=== PATIENT | female | born 1980 | race Caucasian/White ===

== ENCOUNTER 2022-04-10 14:32 | Emergency (ER) | payer BC, SELFPAY ==
[2022-04-10 15:13] VITALS: BP 159/121; PULSE 122; RESP 16; TEMP 37.1; O2SAT 97; BMI 40.5
--- NOTE | 2022-04-10 16:05 | ED_ITS ---
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 (Auto) 0.00 (0.00-0.50) K/uL Baso # (Auto) 0.00 (0.00-0.30) K/uL Abs Immat Gran (auto) 0.01 (0.00-0.30) K/uL Sodium (135-149) mmol/L Potassium (3.6-5.1) mmol/L Chloride (96-114) mmol/L Carbon Dioxide (20-32) mmol/L BUN (5-24) mg/dL Creatinine (0.5-1.5) mg/dL Estimated Creat Clear Estimated GFR ml/min Glucose (60-115) mg/dL Calcium (8.4-10.6) mg/dL TSH (0.270-4.20) uIU/mL HCG, Qual Negative (Negative) Urine Color (Yellow) Urine Appearance (Clear) Urine pH (5.0-8.5) Ur Specific [place] (1.000-1.030) Urine Protein (Negative) Urine Glucose (UA) (Negative) Urine Ketones (Negative) Urine Blood (Negative) Urine Nitrite (Negative) Urine Bilirubin (Negative) Urine Urobilinogen (0.2-1.0) Ur Leukocyte Esterase (Negative) Salicylates (1.0-10) mg/dL Urine Opiates Screen (Negative) Ur Oxycodone Screen (Negative) Urine Methadone Screen (Negative) Ur Propoxyphene Screen (Negative) Acetaminophen (10.0-30.0) ug/mL Ur Barbiturates Screen (Negative) U Tricyclic Antidepress (Negative) Ur Phencyclidine Scrn (Negative) Ur Amphetamines Screen (Negative) U Methamphetamines Scrn (Negative) U Benzodiazepines Scrn (Negative) Urine Cocaine Screen (Negative) U Marijuana (THC) Screen (Negative) Ur Drug Screen Comment Ethyl Alcohol (0.01-0.03) % SARS-CoV-2 (PCR) Negative SARS-CoV-2 (Negative) Influenza Type A (PCR) Negative PCR FLU A (Negative) Influenza Type B (PCR) Negative PCR FLU B (Negative) 04/10/22 04/10/22 04/10/22 Range/Units 16:20 16:20 18:00 WBC (4.50-11.00) K/uL RBC (4.00-5.20) m/uL Hgb (12.0-16.0) gm/dL Hct (33.0-51.0) % MCV (80-100) fL MCH (26-34) pg MCHC (32-36) gm/dL RDW Coeff of Caprice (11.5-15.5) % Plt Count (140-440) K/uL Neut % (Auto) (42.0-72.0) % Lymph % (Auto) (20-44) % [place] % (Auto) (0.0-11.0) % Eos % (Auto) (0.0-7.0) % Baso % (Auto) (0.0-3.0) % Neut # (Auto) (1.7-7.0) K/uL Lymph # (Auto) (0.90-2.90) K/uL [place] # (Auto) (0.00-0.90) K/UL Eos # (Auto) (0.00-0.50) K/uL Baso # (Auto) (0.00-0.30) K/uL Abs Immat Gran (auto) (0.00-0.30) K/uL Sodium 140 (135-149) mmol/L Potassium 3.9 (3.6-5.1) mmol/L Chloride 105 (96-114) mmol/L Carbon Dioxide 22 (20-32) mmol/L BUN 13 (5-24) mg/dL Creatinine 1.0 (0.5-1.5) mg/dL Estimated Creat Clear 62.64 Estimated GFR 72 ml/min Glucose 136 H (60-115) mg/dL Calcium 9.8 (8.4-10.6) mg/dL TSH 3.750 (0.270-4.20) uIU/mL HCG, Qual Cancelled (Negative) Urine Color (Yellow) Urine Appearance (Clear) Urine pH (5.0-8.5) Ur Specific [place] (1.000-1.030) Urine Protein (Negative) Urine Glucose (UA) (Negative) Urine Ketones (Negative) Urine Blood (Negative) Urine Nitrite (Negative) Urine Bilirubin (Negative) Urine Urobilinogen (0.2-1.0) Ur Leukocyte Esterase (Negative) Salicylates < 1.0 L (1.0-10) mg/dL Urine Opiates Screen (Negative) Ur Oxycodone Screen (Negative) Urine Methadone Screen (Negative) Ur Propoxyphene Screen (Negative) Acetaminophen < 10.0 L (10.0-30.0) ug/mL Ur Barbiturates Screen (Negative) U Tricyclic Antidepress (Negative) Ur Phencyclidine Scrn (Negative) Ur Amphetamines Screen (Negative) U Methamphetamines Scrn (Negative) U Benzodiazepines Scrn (Negative) Urine Cocaine Screen (Negative) U Marijuana (THC) Screen (Negative) Ur Drug Screen Comment Ethyl Alcohol < 0.01 L (0.01-0.03) % SARS-CoV-2 (PCR) (Negative) Influenza Type A (PCR) (Negative) Influenza Type B (PCR) (Negative) 04/10/22 04/10/22 Range/Units 18:00 18:00 WBC (4.50-11.00) K/uL RBC (4.00-5.20) m/uL Hgb (12.0-16.0) gm/dL Hct (33.0-51.0) % MCV (80-100) fL MCH (26-34) pg MCHC (32-36) gm/dL RDW Coeff of Caprice (11.5-15.5) % Plt Count (140-440) K/uL Neut % (Auto) (42.0-72.0) % Lymph % (Auto) (20-44) % [place] % (Auto) (0.0-11.0) % Eos % (Auto) (0.0-7.0) % Baso % (Auto) (0.0-3.0) % Neut # (Auto) (1.7-7.0) K/uL Lymph # (Auto) (0.90-2.90) K/uL [place] # (Auto) (0.00-0.90) K/UL Eos # (Auto) (0.00-0.50) K/uL Baso # (Auto) (0.00-0.30) K/uL Abs Immat Gran (auto) (0.00-0.30) K/uL Sodium (135-149) mmol/L Potassium (3.6-5.1) mmol/L Chloride (96-114) mmol/L Carbon Dioxide (20-32) mmol/L BUN (5-24) mg/dL Creatinine (0.5-1.5) mg/dL Estimated Creat Clear Estimated GFR ml/min Glucose (60-115) mg/dL Calcium (8.4-10.6) mg/dL TSH (0.270-4.20) uIU/mL HCG, Qual (Negative) Urine Color Yellow (Yellow) Urine Appearance Clear (Clear) Urine pH 6.0 (5.0-8.5) Ur Specific [place] 1.025 (1.000-1.030) Urine Protein Negative (Negative) Urine Glucose (UA) Negative (Negative) Urine Ketones Negative (Negative) Urine Blood Negative (Negative) Urine Nitrite Negative (Negative) Urine Bilirubin Negative (Negative) Urine Urobilinogen 0.2 (0.2-1.0) Ur Leukocyte Esterase Negative (Negative) Salicylates (1.0-10) mg/dL Urine Opiates Screen Negative (Negative) Ur Oxycodone Screen Negative (Negative) Urine Methadone Screen Negative (Negative) Ur Propoxyphene Screen Negative (Negative) Acetaminophen (10.0-30.0) ug/mL Ur Barbiturates Screen Negative (Negative) U Tricyclic Antidepress POSITIVE A* (Negative) Ur Phencyclidine Scrn Negative (Negative) Ur Amphetamines Screen Negative (Negative) U Methamphetamines Scrn Negative (Negative) U Benzodiazepines Scrn POSITIVE A* (Negative) Urine Cocaine Screen Negative (Negative) U Marijuana (THC) Screen Negative (Negative) Ur Drug Screen Comment See Note Ethyl Alcohol (0.01-0.03) % SARS-CoV-2 (PCR) (Negative) Influenza Type A (PCR) (Negative) Influenza Type B (PCR) (Negative) <Sofia Edge MD - Last Filed: 04/11/22 14:42> Discharge Plan Discharge Clinical Impression: Bipolar 1 disorder, manic, moderate <Fito Guerrero MD - Last Filed: 04/19/22 10:27> Patient Disposition: Xfer Psychiatric Hosp <Fito Guerrero MD - Last Filed: 04/19/22 10:27> Condition: Unchanged <Fito Guerrero MD - Last Filed: 04/19/22 10:27> Prescriptions: No Action fluoxetine 40 mg capsule 40 mg PO QAM atorvastatin 40 mg tablet 40 mg PO HS lithium carbonate 300 mg tablet extended release 1,200 mg PO HS famotidine 20 mg tablet 20 mg PO QAM hydroxyzine pamoate 25 mg capsule 50 mg PO BID PRN (Reason: anxiety) Label Comments: TAKE 2 CAPSULES BY MOUTH FOR INSOMNIA AND 1 TO 2 DAILY NEEDED FOR ANXIETY <Fito Guerrero MD - Last Filed: 04/19/22 10:27> Stand Alone Forms: MyHealth Info Instructions <Fito Guerrero MD - Last Filed: 04/19/22 10:27>
[2022-04-10 16:32] LABS: Basophils Percent Auto 0.4 % (0.0-3.0); Eosinophils Percent Auto 0.3 % (0.0-7.0); Hematocrit 44.9 % (33.0-51.0); Hemoglobin* 14.7 gm/dL (12.0-16.0); Immature Granulocytes Abs Auto 0.01 K/uL (0.00-0.30); Lymphocytes Percent Auto 13.1 % (20-44); Mean Corpuscular HGB Conc 33 gm/dL (32-36); Mean Corpuscular Hemoglobin 30 pg (26-34); Mean Corpuscular Volume 92 fL (80-100); Monocytes Percent Auto 6.8 % (0.0-11.0); Neutrophils Percent Auto 79.3 % (42.0-72.0); Platelet Count* 326 K/uL (140-440); RDW Coefficient of Variation % 12.6 % (11.5-15.5); Red Blood Count 4.89 m/uL (4.00-5.20); White Blood Count* 11.37 K/uL (4.50-11.00)
[2022-04-10 16:34] LABS: Slide Review Reflex No
[2022-04-10 16:53] LABS: Chloride* 105 mmol/L (96-114)
[2022-04-10 16:54] LABS: Potassium* 3.9 mmol/L (3.6-5.1); Sodium* 140 mmol/L (135-149)
[2022-04-10 16:56] LABS: Carbon Dioxide* 22 mmol/L (20-32); Est. Creatinine Clearance* 62.64; Estimated Glomerular Filt Rate 72 ml/min
[2022-04-10 16:57] LABS: Blood Urea Nitrogen* 13 mg/dL (5-24); Calcium* 9.8 mg/dL (8.4-10.6); Glucose* 136 mg/dL (60-115)
[2022-04-10 17:00] LABS: HCG Qualitative Serum* Negative (Negative)
[2022-04-10 17:01] LABS: Acetaminophen* < 10.0 ug/mL (10.0-30.0); Ethanol* < 0.01 % (0.01-0.03); Salicylate* < 1.0 mg/dL (1.0-10)
[2022-04-10 17:10] VITALS: BP 147/100; PULSE 111; O2SAT 97
[2022-04-10 18:22] LABS: Amphetamine Screen Urine Negative (Negative); Barbiturate Screen Urine Negative (Negative); Cannabinoid Screen Urine Negative (Negative); Cocaine Screen Urine Negative (Negative); Methadone Screen Urine Negative (Negative); Methamphetamines Screen Urine Negative (Negative); Opiate Screen Urine Negative (Negative); Oxycodone Screen Urine Negative (Negative); Phencyclidine Screen Urine Negative (Negative)
[2022-04-10 18:43] LABS: Benzodiazepines Screen Urine POSITIVE (Negative); Tricyclic Antidepressant Urine POSITIVE (Negative)
[2022-04-10 20:05] VITALS: PULSE 111; O2SAT 95
[2022-04-10 20:51] LABS: Appearance Urine Clear (Clear); Bilirubin Urine Negative (Negative); Blood Urine Negative (Negative); Color Urine Yellow (Yellow); Glucose Urine Negative (Negative); Ketones Urine Negative (Negative); Leukocyte Esterase Urine Negative (Negative); Nitrite Urine Negative (Negative); Protein Urine Negative (Negative); Specific Gravity Urine 1.025 (1.000-1.030); Urobilinogen Urine 0.2 (0.2-1.0)
[2022-04-10] MEDS: OLANZapine 5 MG TAB.RAPDIS 10 MG PO (21:51)
--- NOTE | 2022-04-10 21:58 | ED.NURSE ---
Pt requesting to take nightly atorvastatin and lithium that pt brought. Okayed with .
[2022-04-10 23:33] LABS: PCR FLU A Negative PCR FLU A (Negative); PCR FLU B Negative PCR FLU B (Negative); SARS PCR* Negative SARS-CoV-2 (Negative)
--- NOTE | 2022-04-11 05:00 | ED.NURSE ---
Patient out at nurses station stating she is very anxious and wants to know an update. Patient is requesting to take 50mg of her own vistaril. Dr. Rouse Okmayito's this and patient takes 50mg of her own vistaril. Patient's medications kept at the nurses station. Patient is asking when the kitchen opens. Reviewed plan of care with patient. Patient is offered a sandwich, but declines until the kitchen opens.
--- NOTE | 2022-04-11 06:56 | ED.NURSE ---
Patient ambulatory to [facility]. Patient states she had diarrhea and that she has been having this for a while and her PCP is working with her to figure it out.
[2022-04-11 07:20] VITALS: BP 154/109; PULSE 85; RESP 18; TEMP 37; O2SAT 98
--- NOTE | 2022-04-11 07:33 | ED.NURSE ---
did walk out to nurses station and wanted to take her morning meds. she stated that she has some diarrhea and thinks that her water, that is at her bedside, and her meds have been tampered with. pharmacy was called and they will go over her medications and reconcile them. is very anxious and suspicious. did order food and is eating this without problems.
[2022-04-11 12:10] VITALS: BP 141/101; RESP 18; O2SAT 98
[2022-04-11] MEDS: FAMOTIDINE 20 MG TABLET PO (13:00)
--- NOTE | 2022-04-11 14:32 | ED.NURSE ---
[facility] have accepted, they do want her on a 72hr hold.
[2022-04-11] MEDS: FLUOXETINE HCL 20 MG CAPSULE 40 MG PO (14:42)
--- NOTE | 2022-04-11 14:50 | ED.NURSE ---
she had been up for a shower. was placed on a 72 hr hold at 1440.
--- NOTE | 2022-04-11 14:54 | ED.NURSE ---
Notice to Patient of Rights Under Emergency Hospitalization was read to pt. she does want copies of the documentation of her hold. did want to speak to dr navas- was concerned about her children. told nurse that you do not understand,you are dismissing me, is shaking and visibly upset. does know that she is on the hold and this was her only bed that we could find for her. dr navas did speak to her also.
[2022-04-11 18:00] VITALS: BP 151/103; PULSE 101; RESP 18; TEMP 36.2; O2SAT 97
--- NOTE | 2022-04-11 19:22 | ED.NURSE ---
john ibrahim called and aware of transfer. did leave 191.
== END 2022-04-11 19:10 ==
PROVIDERS: Family Medicine; PCP Family Medicine
DX: F31.12 Bipolar disorder, current episode manic without psychotic features, moderate (principal)
CPT/HCPCS: 36415; 80048; 80143; 80179; 80306; 81003; 82077; 84443; 84703; 85025; 87631; 87635; 99284; A9270

== ENCOUNTER 2022-04-11 19:06 | Outpatient (CLI) | payer BC, SELFPAY | END 2022-04-11 19:07 | disposition home or self-care (01) | LOC: AMB 04-26 15:05 | PROVIDERS: PCP Family Medicine; Visit Provider Emergency Medicine | DX: F30.9 Manic episode, unspecified (principal) | CPT/HCPCS: A0425; A0428 ==

== ENCOUNTER 2023-12-21 08:40 | Outpatient (CLI) | payer OTHER, MEDICAID, SELFPAY ==
--- OUTSIDE RECORDS SUMMARY | 2024-01-08 08:42 | XMS_ITS ---
Author Organization [facility] Address [address] [place] [address] Care Team Providers Care Sawmill Or Timber Yard Worker Name Role Phone Unavailable Unavailable Unavailable Surgery Details Not on file Complications Check Surgery Details section. Procedure Estimated Blood Loss Check Surgery Details section. Procedure Findings Check Surgery Details section. Procedure Specimens Taken Check Surgery Details section.
--- OUTSIDE RECORDS SUMMARY | 2024-01-08 08:42 | XMS_ITS | Encounter Summary ---
Author Organization [facility] Address [address] [place] [address] Care Team Providers Care Aegis Console Operator Track Name Role Phone Unavailable Primary Care Provider Unavailabl e Reason for Visit * Appointment Request (Routine) - Closed Specialty Diagnoses / Procedures Referred By Amarjit hassan Referred To Contact Nephrology and Hypertension Referral ID Status Reason Start Date Expiration Date Visits Re quested Visits Authorized [id number] Closed 11/15/2023 11/14/2024 1 1 Encounter Details Date Type Department Care Team (Latest Contact Info) Description 12/24/2023 4:30 PM CDT External Outreach Division of Nephrology and Hypertension in [place], [place] [address] [place] [address] Merlin Dougherty Jr., D.O. 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) Social History Tobacco Use Types Packs/Day Years Used Date Smoking Tobacco: Never Smokeless Tobacco: Never Alcohol Use Standard Drinks/Week Comments No 0 (1 standard drink = 0.6 oz pur e alcohol) Nutrition Answer Date Recorded Nutrition: EVOO Fat Source Unknown 08/17 Nutrition: Servings of Fruits/Vegetables per Day Not on file 08/17/2023 Dental Answer Date Recorded Dental: Regular Dentist Unknown 08/17/19 Sex and Gender Information Value Date Recorded Sex Assigned at Not on file Gender Identity Not on file Sexual Orientation Not on file documented as of this encounter Last Filed Vital Signs Vital Sign Reading Time Taken Comments Blood Pressure 136/81 12/24/2023 4:50 PM CDT Pulse 73 12/24/2023 4:50 PM CDT Temperature - - Respiratory Rate - - Oxygen Saturation - - Inhaled Oxygen Concentration - - Weight 105 kg (232 lb 5.8 oz) 12/24/2023 4:50 PM CDT Height 163.8 cm (5' 4.49) 12/24/2023 4:50 PM CD T Body Mass Index 39.28 12/24/2023 4:50 PM CDT documented in this encounter Progress Notes * Merlin Dougherty Jr., D.O. - 12/24/2023 4:30 PM CDT Referring Provider: No primary care provider on file. 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 Han is a 43 y.o. female who presents with a serum creatinine which had been 1.06 mg/dL in'scurrently 0.9 mg/dL. Her psychiatrist decreased her lithium dose from 1200 mg per day to 600 mg perday on the background of her feeling somewhat slowed from a mental clarity perspective. Her mood is excellent she is doing well. She has no constitutional complaints. Her blood pressures been excellent she has had no orthostaticissues no change in urine character or quantity, no lower extremity swelling. I was delighted to inform her of her normal labs, normal urine studies, and that her blood pressureis excellent. Past Medical History: Diagnosis Date Anxiety Generalized Disorder Bipolar Disorder Current Episode Manic Severe With Psychotic Features ([facility]) 07/19/2017 Depressive Disorder Current Outpatient Medications: lithium carbonate (ESKALITH) 150 mg capsule, 1,200 mg., Disp: , Rfl: QUEtiapine (for_SEROquel) 100 mg tablet, Take 50-100 mg by mouth daily as needed., Disp: , Rfl: venlafaxine XR (for_EFFEXOR-XR) 150 mg 24 hr capsule, Take 150 mg by mouth daily., Disp: , Rfl: REVIEW OF SYSTEMS All other systems reviewed and are negative. OBJECTIVE BP 136/81 Pulse 73 Ht 163.8 cm Wt 105 kg BMI 39.28 kg/m?? PHYSICAL EXAMINATION General: Awake alert oriented HEENT: ROGELIO, EOMI, Mucous membranes moist, no oral lesions Neck: No Masses, No Bruits Lungs: Clear to ascultation Heart: Regular Rate and Rhythm, No ectopy Murmurs or rubs Abdomen: Soft, Non-tender Extremities: No cyanosis, No clubbing: No edema Neuro: Cranial Nerves intact, Gait is normal, strength grossly normal Skin: no suspicious lesions identified Psychiatric: Normal affect DIAGNOSTICS Note serum creatinine 0.9 mg/dL, normal CBC, normal electrolytes particularly, normal serum calcium, normal urinalysis without microalbuminuria ASSESSMENT / PLAN #1 Chronic Kidney Disease Stage 2 Glomerular Filtration Rate 60 To 89 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 Going forward 1. Continue to stay well hydrated 2. We will hold off on initiation of amiloride 3. Goal blood pressures less than 130s over 80s 4. Minimize if not avoid NSAIDs and Mcintosh 2 inhibitors 5. Stay very well hydrated 6. We will see each other in 6 months with pre scheduled labs and urine studies. #2 Bipolar Disorder Current Episode Manic Severe With Psychotic Features (HCC) She is doing quite well on 600 mg of lithium per day. Total time: 20 minutes Counseling Time: 15 minutes Merlin Dougherty Jr., D.O. documented in this encounter Plan of Treatment Not on file documented as of this encounter Visit Diagnoses Diagnosis Chronic Kidney Disease Stage 2 Glomerular Filtration Rate 60 To 89- Primary Bipolar Disorder Current Episode Manic Severe With Psychotic Features (HCC) documented in this encounter
--- OUTSIDE RECORDS SUMMARY | 2024-01-08 08:42 | XMS_ITS | Clinical Summary ---
Author Organization [facility] Address [address] [place] [address] Care Team Providers Care Warp Bleaching Vat Tender Name Role Phone Unavailable Primary Care Provider Unavailabl e Source Comments Patient records contain information from all sites at [facility]. For routine questions regarding patient records, call [phone] during business hours, M-F 8:00 AM - 5:00 PM Central Time. Record requests for emergency care only can be directed to [phone] at any time.[facility] Allergies Active Allergy Reactions Criticality Noted Date Comments Penicillin V Other (see comments) Medium 08/28/2017 Vomited Medications Medication Sig Dispensed Refills Start Date End Date Status venlafaxine XR (for_EFFEXOR-XR) 150 mg 24 hr capsule Take 150 mg by mouth daily. Active QUEtiapine (for_SEROquel) 100 mg tablet Take 50-100 mg by mouth daily as needed. Active lithium carbonate (ESKALITH) 150 mg capsule 1,200 mg. 04/10/2022 Active Active Problems Problem Noted Date Diagnosed Date Chronic Kidney Disease Stage 2 Glomerular Filtration Rate 60 To 89 09/03/2023 Obesity Body Mass Index 30-39.9 Adult 07/25/2017 Noncompliance With Medication Regimen 07/24/2017 Bipolar Disorder Current Epi sode Manic Severe With Psychotic Features 07/19/2017 Homicidal Ideations 07/16/2017 Encounters Date Type Department Care Team Description 12/24/2023 4:30 PM CDT External Outreach Division of Nephrology and Hypertension in [place], [place] [address] [place] [address] Merlin Dougherty Jr., D.O. 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 (HCC) from Last 3 Months Immunizations Name Administration Dates Next Due Influenza, Unspecified 05/17/2017,05/16/2016 Tdap 04/03/2013 Family History Medical History Relation Name Comments Anxiety disorder Father Depression Father Bipolar disorder Father's Sister ADD / ADHD Mother Alcohol abuse Mother PTSD Mother Suicide Attempts Mother Relation Name Status Comments Father Father's Sister Mother Social History Tobacco Use Types Packs/Day Years [...] on file Sexual Orientation Not on file Last Filed Vital Signs Vital Sign Reading Time Taken Comments Blood Pressure 136/81 12/24/2023 4:50 PM CDT Pulse 73 12/24/2023 4:50 PM CDT Temperature 36 ??C (96.8 ??F) 08/21/2017 6:26 AM FILTERING MACHINE TENDER HELPER Respiratory Rate 16 08/10/2017 2:46 AM FILTERING MACHINE TENDER HELPER Oxygen Saturation 97% 08/16/2017 4:15 PM FILTERING MACHINE TENDER HELPER Inhaled Oxygen Concentration - - Weight 105 kg (232 lb 5.8 oz) 12/24/2023 4:50 PM CDT Height 163.8 cm (5' 4.49) 12/24/2023 4:50 PM CD T Body Mass Index 39.28 12/24/2023 4:50 PM CDT Plan of Treatment Health Maintenance Due Date Last Done Comments Cervical Cancer Screening 1979 Hepatitis C Screening 1979 Hepatitis B Vaccines (1 of 3 - 19+ 3-dose series) 1998 Mammogram 02/02/2023 02/02/2022 Depression Screening (Annual PHQ-2) 08/06/2023 Glucose Test for Med Monitoring 10/25/2024 10/26/2023, 09/14/2023, 05/25/2022, Additional history exists Lipid (Cholesterol) Screening 05/25/2027 05/25/2022, 12/28/2021 DTaP,Tdap,and Td Vaccines (3 - Td or Tdap) 05/21/2033 05/21/2023, 04/03/2013 COVID-19 Vaccine Completed 05/22/2023, 12/2021, 06/17/2021, Additional history exists Influenza Vaccine Completed 05/22/2023, , 06/16/2021, Additional history exists HPV Vaccines Aged Out No longer eligi ble based on patient's age to complete this topic Pneumococcal vaccine (0-64 years) Aged Out No longer eligible based on patient's age to complete this topic Procedures Procedure Name Priority Date/Time Associated Diagnosis Comments EXTI BASIC METABOLIC PANEL, S/P Routine 10/26/2023 10:49 AM CDT EXTI LIPID PANEL W REFLEX MEASURED LDL Routine 05/25/2022 9:19 AM CDT BI BREAST SCREENING BILATERAL WITH TOMOSYNTHESIS Routine 02/02/2022 10:26 AM CDT from Last 3 Months or Most Recently Relevant to Health Maintenance Advance Directives For more information, please contact: [phone] * Full Code (Latest Code Status on File) Date Activated Date Inactivated Comments 07/17/2017 8:20 AM 08/21/2017 9:15 PM Question Answer Comments Full Code: Not Discussed Due to: Not medically appropriate * Full Code Date Activated Date Inactivated Comments 07/16/2017 8:20 PM 07/17/2017 8:20 AM Question Answer Comments Full Code: Not Discussed Due to: Not medically appropriate
--- OUTSIDE RECORDS SUMMARY | 2024-01-08 08:42 | XMS_ITS | Referral Summary ---
Author Organization [facility] Address [address] [place] [address] Care Team Providers Care Floor Service Worker Spring Name Role Phone Unavailable Primary Care Provider Unavailabl e Source Comments Patient records contain information from all sites at [facility]. For routine questions regarding patient records, call [phone] during business hours, M-F 8:00 AM - 5:00 PM Central Time. Record requests for emergency care only can be directed to [phone] at any time.[facility] Encounters Date Type Department Care Team Description 12/24/2023 4:30 PM CDT External Outreach Division of Nephrology and Hypertension in [place], [place] [address] [place] [address] Merlin Dougherty Jr., D.O. 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 (HCC) from Last 3 Months Allergies Active Allergy Reactions Criticality Noted Date [...] With Psychotic Features 07/19/2017 Homicidal Ideations 07/16/2017 Immunizations Name Administration Dates Next Due Influenza, Unspecified 05/17/2017,05/16/2016 Tdap 04/03/2013 Social History Tobacco Use Types Packs/Day Years [...] 36 ??C (96.8 ??F) 08/21/2017 6:26 AM [facility] Respiratory Rate 16 08/10/2017 2:46 AM [facility] Oxygen Saturation 97% 08/16/2017 4:15 PM [facility] Inhaled Oxygen Concentration - - Weight 105 kg (232 lb 5.8 oz) 12/24/2023 4:50 PM CDT Height 163.8 cm (5' 4.49) 12/24/2023 4:50 PM CD T Body Mass Index 39.28 12/24/2023 4:50 PM CDT Plan of Treatment Not on file Procedures Procedure Name Priority Date/Time Associated Diagnosis Comments EXTI BASIC METABOLIC PANEL, S/P Routine 10/26/2023 10:49 AM CDT EXTI LIPID PANEL W REFLEX MEASURED LDL Routine 05/25/2022 9:19 AM CDT BI BREAST SCREENING BILATERAL WITH TOMOSYNTHESIS Routine 02/02/2022 10:26 AM CDT from Last 3 Months or Most Recently Relevant to Health Maintenance Advance Directives For more information, please contact: [phone] * Full Code (Latest Code Status on [...]
--- OUTSIDE RECORDS SUMMARY | 2024-01-08 08:43 | XMS_ITS | Clinical Summary ---
Author Organization [facility] Address [place], [place] [address] Care Team Providers Care Remote Inpatient Coder Name Role Phone Clary Prieto DO Primary Care Provider [phone] Allergies Active Allergy Reactions Criticality Noted Date Comments Penicillins Nausea And Vomiting 06/19/2014 As a child. Medications Medication Sig Dispensed Refills Start Date End Date Status famotidine (PEPCID) 20 mg tabletIndications:Hea rtburn Take 1 Tablet (20 mg) by mouth once daily. 90 Tablet 3 04/12/2023 Active atorvastatin (LIPITOR) 40 mg tabletIndications:Hyp erlipidemia, unspecified hyperlipidemia type TAKE 1 AND 1/2 TABLETS(60 MG) BY MOUTH AT BEDTIME 135 Tablet 2 06/03/2023 Active hydrOXYzine pamoate (VISTARIL) 25 mg capsuleIndications:An xiety,Psychophysiolog ical insomnia TAKE 2 CAPSULES BY MOUTH FOR INSOMNIA AND 1 TO 2 DAILY NEEDED FOR ANXIETY 360 Capsule 1 08/09/2023 Active docosahexaenoic acid/epa (FISH OIL ORAL) Take by mouth. Active busPIRone (BUSPAR) 30 mg tabletIndications:Anx iety Take 1 Tablet (30 mg) by mouth two times daily. 180 Tablet 1 11/22/2023 Active lithium carbonate (LITHONATE) 300 mg capsuleIndications:Bi polar 1 disorder (HC) Take 2 Capsules (600 mg) by mouth at bedtime. 180 Capsule 1 11/22/2023 Active OLANzapine (ZYPREXA) 5 mg tabletIndications:Bip olar 1 disorder (HC) Take 1 Tablet (5 mg) by mouth at bedtime. 90 Tablet 1 11/22/2023 Active Active Problems Problem Noted Date Diagnosed Date Pap smear for cervical cancer screening 01/05/20 Overview: 01/2022 NIL/HPV negative. Plan: Pap/HPV due 01/2027. Anxiety 11/05/2019 Bipolar 1 disorder 02/26/2018 Psychophysiological insomnia 02/22/2016 Resolved Problems Problem Noted Date Diagnosed Date Resolved Date Bipolar disorder, current ep isode manic severe with psychotic features 02/29/2016 6 Bipolar disorder, current ep isode manic severe with psychotic features 02/21/2016 6 Encounters Date Type Department Care Team Description 11/22/2023 8:45 AM CDT Telemedicine [facility] [place] [address] Angelina Parmar MD Telehealth; Medication Management (Still struggling with anxiety/[place] increase noticed no change) 11/22/2023 Travel 10/29/2023 Telephone [facility] [place] [address] Angelina Parmar MD Follow Up 10/26/2023 10:45 AM CDT Orders Only [facility] [place] [address] Lab, [place] [facility] 10/26/2023 Travel 10/22/2023 4:45 PM CDT Telemedicine [facility] [place] [address] Jodee Key, PhD, LP Individual Therapy 10/22/2023 Travel 10/18/2023 8:45 AM CDT Telemedicine [facility] [place] [address] Angelina Parmar MD Telehealth; Medication Management 10/18/2023 Travel 10/17/2023 8:00 AM CDT Orders Only [facility] [place] [address] Lab, [place] [facility] 10/17/2023 Travel 10/08/2023 4:45 PM BENDING ROLL OPERATOR Telemedicine [facility] [address] [place] [address] Jodee Key, PhD, Mental Health Intake 10/08/2023 Travel from Last 3 Months Immunizations Name Administration Dates Next Due COVID-19 vaccine (Moderna 100mcg/0.5mL) PF, MDV 11/13/2020 COVID-19 vaccine (Pfizer-Bio NTech 30mcg/0.3mL) 12YO+ BIVALENT PF, MDV 07/10/2022 COVID-19 vaccine (Pfizer-Bio NTech 30mcg/0.3mL) PF, MDV 06/17/2021,06/16/2021 Influenza Virus, Unspecified 04/18/2013 Influenza, IIV4 05/17/2022,,10/06/2019,2016,05/16/2016,05/20/2015,06/02/2014 Influenza, IIV4 (=>6mos) MDV 05/18/2020 Influenza, Injectable, Mdck, Quadrivalent, W/preservative 05/22/2023 Tdap 05/21/2023,04/03/2013 Family History Medical History Relation Name Comments Diabetes Father Hypertension Father Psychiatric illness Father depressi on, anxiety Alcoholism Mother sober since pt was 7yo Hyperlipidemia Mother Psychiatric illness Mother adhd, bi polar, borderline, anxiety, depression Relation Name Status Comments Brother 1 Alive Brother 2 Alive Father Alive Mother Alive Social History Tobacco Use Types Packs/Day Years Used Date Smoking Tobacco: Never Smokeless Tobacco: Never Tobacco Cessation:Counseling Given: Not Answered Alcohol Use Standard Drinks/Week Comments Yes 0 (1 standard drink = 0.6 oz pur e alcohol) PHQ-2 Answer Date Recorded PHQ-2 TOTAL SCORE 2 11/22/2023 Social Connections Answer Date Recorded Frequency of Communication with Friends and Fami ly Not on file 01/05/2024 Alcohol Use Answer Date Recorded How often do you have a drink containing alcohol ? 2 10/02/2023 How many drinks containing a lcohol do you have on a typical day when you are drinking? 0 10/02/2023 How often do you have five or more drinks on one occasion? 0 10/02/2023 Financial Resource Strain Answer Date R ecorded Difficulty of Paying Living Expenses 3 12/29/2022 Difficulty of Paying Living Expenses Not on file 12/29/2022 Food Insecurity Answer Date Recorded Worried About Running Out of Food in the Last Ye ar 1 12/29/2022 Transportation Needs Answer Date Record ed Lack of Transportation (Medical) 1 12/29/2022 Housing Stability Answer Date Recorded Unable to Pay for Housing in the Last Year 1 12/29/2022 Sex and Gender Information Value Date Recorded Sex Assigned at Female 02/24/2022 10:40 AM CDT Gender Identity Female 02/24/2022 10:40 AM CDT Sexual Orientation Not on file Obstetrics History Para Term AB IAB SAB Ectopic Multiple Livin g Live Births 2 2 2 0 0 0 0 0 0 2 2 Date Outcome GA Total Labor Labor/2nd/3rd Weight Sex Delivery Anes PTL Deanna A1 A5 Name Cl in Term Vag Althea ng Term Vag Althea ng Last Filed Vital Signs Vital Sign Reading Time Taken Comments Blood Pressure 128/80 10/02/2023 9:50 AM BENDING ROLL OPERATOR Pulse 86 10/02/2023 8:55 AM BENDING ROLL OPERATOR Temperature 36.8 ??C (98.2 ??F) 10/24/2022 9:39 AM CD T Respiratory Rate 16 03/09/2016 9:00 AM CDT Oxygen Saturation 96% 10/02/2023 8:55 AM BENDING ROLL OPERATOR Inhaled Oxygen Concentration - - Weight 104.3 kg (230 lb) 10/02/2023 8:55 AM BENDING ROLL OPERATOR Height 164 cm (5' 4.57) 01/19/2022 1:29 PM CDT Body Mass Index 38.79 01/19/2022 1:29 PM CDT Plan of Treatment Upcoming Encounters Date Type Department Care Team (Late st Contact Info) Description 03/20/2024 8:45 AM CDT Telemedicine [facility] [address] [place] [address] Angelina Parmar MD [address] [place] [address] 03/25/2024 8:45 AM CDT Office Visit [facility] [address] [place] [address] Clary Prieto DO [address] [place] [address] Health Maintenance Due Date Last Done Comments BMI (ht and wt on same day) for age 18+ 01/19/2023 01/19/2022, 05/04/2021, 05/01/2019, Additional history exists Influenza for age 9-49 04/06/2024 , 05/17/2022, 06/16/2021, Additional history exists Depression screening for age 12+ 11/21/2024 11/22/2023, 10/26/2023, 10/22/2023, Additional history exists Pap test for age 21-65 01/19/2027 , 01/19/2022, 04/03/2016, Additional history exists Colonoscopy through age 75 06/21/203106/21, 06/21/2021, 06/21/2021, Additional history exists Tetanus booster 05/21/2033 05/21/2023, 04/03/2013 HIV for age 15-65 Completed 05/17/2023 Hepatitis C screening for age 18-79 Completed 05/17/2023 Tdap Completed 05/21/2023, 04/03/2013 COVID-19 vaccine series Completed 05/22/20 23, 07/10/2022, 06/17/2021, Additional history exists Pneumococcal series for age 6-64 Aged Out No longer eligible based on patient's age to complete this topic Procedures Procedure Name Priority Date/Time Associated Diagnosis Comments BASIC METABOLIC PANEL Routine 10/26/2023 10:49 AM CDT Encounter for lithium monitoring LITHIUM Routine 10/26/2023 10:49 AM CDT Encounter for lithium monitoring LITHIUM Routine 10/17/2023 8:15 AM CDT Encounter for lithium monitoring ANTI HIV 1/2 Routine 05/17/2023 8:44 AM CDT Screening for HIV (human immunodeficiency virus) ANTI HCV Routine 05/17/2023 8:44 AM CDT Need for hepatitis C screening test HPV THIN PREP Routine 01/19/2022 2:04 PM CDT Cervical cancer screening COLONOSCOPY DIAGNOSTIC Routine 06/21/2021 1:25 PM BENDING ROLL OPERATOR Chronic diarrhea from Last 3 Months or Most Recently Relevant to Health Maintenance Results * (ABNORMAL) LITHIUM (10/26/2023 10:49 AM CDT) Only the most recent of2 resultswithin the time period is included. LITHIUM 0.5(L) 0.6 - 1.2 mmol/L 10/26/2023 4:53 PM CDT [facility] DATE OF LAST DOSE 10/25/2023 10/26/2023 4:53 PM CDT [facility] TIME OF LAST DOSE 10:50 PM 10/26/2023 4:53 PM CDT [facility] Blood BLOOD SPECIMEN / Unknown Venipuncture / Unknown 10/26/2023 10:49 AM CDT 10/26/2023 10:51 AM CDT Angelina Parmar MD CHEMISTRY [facility] [address] [place] [address], * (ABNORMAL) BASIC METABOLIC PANEL (10/26/2023 10:49 AM CDT) SODIUM 138 136 - 145 mmol/L 10/26/2023 4:14 PM CDT [facility] POTASSIUM 4.4 3.5 - 5.1 mmol/L 10/26/2023 4:14 PM CDT [facility] CHLORIDE 105 98 - 107 mmol/L 10/26/2023 4:14 PM CDT [facility] CO2,TOTAL 25 22 - 29 mmol/L 10/26/2023 4:14 PM CDT [facility] ANION GAP 8 5 - 18 10/26/2023 4:14 PM CDT [facility] GLUCOSE 82 70 - 99 mg/dL 10/26/2023 4:14 PM CDT [facility] CALCIUM 9.5 8.6 - 10.0 mg/dL 10/26/2023 4:14 PM CDT [facility] BUN 10 6 - 20 mg/dL 10/26/2023 4:14 PM CDT [facility] CREATININE 0.91(H) 0.50 - 0.90 mg/dL 10/26/2023 4:14 PM CDT [facility] BUN/CREAT RATIO 11 10 - 20 4:14 PM CDT [facility] eGFR 80(L) >90 mL/min/1.7 3m2 10/26/2023 4:14 PM CDT [facility] Comment:As of 2021, eG FR is calculated by the CKD-EPI creatinine equation without race adjustment. ??eGFR can be influenced by muscle mass, exercise, and diet. ??The reported eGFR is an estimation only and is only applicable if the renal function is stable. Blood BLOOD SPECIMEN / Unknown Venipuncture / Unknown 10/26/2023 10:49 AM CDT 10/26/2023 10:50 AM CDT Angelina Parmar MD [facility] [address] [place] [address], * ANTI HCV (05/17/2023 8:44 AM CDT) HEPATITIS C ANTIBODY Non-Reacti ve Non-React daniel 05/17/2023 5:42 PM CDT [facility] Comment:Please note, per www .CDC.gov: If a patient is known to be at high risk of HCV infection, or is symptomatic, and the physician's suspicion of HCV infection is high, HCV RNA testing is often employed and is of diagnostic value, even after an initial negative anti-HCV test result. Blood BLOOD SPECIMEN / Unknown Venipuncture / Unknown 05/17/2023 8:44 AM CDT 05/17/2023 8:46 AM CDT Clary Prieto DO SEND OUTS Performing Organization Address [facility] de Phone Number [facility] [address] [place] [address], * ANTI HIV 1/2 [33524.0] (05/17/2023 8:44 AM CDT) HIV-1/HIV-2 SCREEN Non-Reacti ve Non-Reacti ve 05/17/2023 5:46 PM CDT [facility] Comment:HIV-1 p24 and HIV-1/ HIV-2 Ab Not Detected. Blood BLOOD SPECIMEN / Unknown Venipuncture / Unknown 05/17/2023 8:44 AM CDT 05/17/2023 8:46 AM CDT Clary Prieto DO SEND OUTS Performing Organization Address [facility] de Phone Number [facility] [address] [place] [address], * HPV HIGH RISK (01/19/2022 2:04 PM CDT) TYPE 16 Negative Negative 01/24/2022 10:35 AM CDT [facility] TYPE 18 Negative Negative 01/24/2022 10:35 AM CDT [facility] OTHER HIGH RISK TYPES Negative Negative 01/24/2022 10:35 AM CDT [facility] Other (Cervical) Non-Blood / Unknown 01/19/2022 2:04 PM CDT 01/20/2022 8:55 AM CDT Narrative [facility] - 01/24/2022 10:35 AM CDT HPV types 16, 18, 31, 33, 35, 39, 45, 51, 52, 56, 58, 59, 66 and 68 DNA were undetectable or below the pre-set threshold. Methodology: Joy Hung 4800 HPV Test Clary Rin Stortz DO MICROBIOLOGY [facility] [address] [place] [address], [place] * COLONOSCOPY (06/21/2021 1:23 PM BENDING ROLL OPERATOR) 06/21/2021 1:23 PM BENDING ROLL OPERATOR Narrative Transcriptions Eric Haynes MD - 06/21/2021 2:27 PM CST Patient Name: Mar Aviles Procedure Date: 06/21/2021 Gender: Female Date of : 1980 Admit Type: Outpatient Procedure: Colonoscopy Proceduralist: Eric Haynes MD , Minoo Funez RN(Nurse) Referring MD: Clary Prieto Indications/Pre-Op Diagnosis: Clinically significant diarrhea ofunexplained origin, This is the patient's firstcolonoscopy Medications: Fentanyl 100 micrograms IV, Midazolam 2 mgIV, The level of sedation administered wasmoderate Procedure Description: The patient had risks, benefits and alternatives explained to andgave informed consent. The patient had a stable cardiopulmonary status and judged an adequate candidate for conscious sedation. The [id number] was passed through the anus and advanced to 6cm into the ileum. The colonoscopy was performed without difficulty. The patient tolerated the procedure well. The quality of the bowel preparation was good. The terminal ileum, ileocecal valve,appendiceal orifice, and rectum were photographed. Complications: No immediate complications. Estimated Blood Loss & Specimen: Estimated blood loss: none. Specimen collected - Yes and sent to Laboratory Findings: The perianal and digital rectal examinations were normal. The terminal ileum appeared normal. A 5 mm polyp was found in the distal sigmoid colon. The polyp was pedunculated. The polyp was removed with a cold snare. Resection and retrieval were complete. Biopsies for histology were taken with a cold forceps from the entire colon for evaluation of microscopic colitis. The exam was otherwise without abnormality on direct and retroflexion views. Impressions/Post-Op Diagnosis: - The examined portion of the ileum was normal. - One 5 mm polyp in the distal sigmoid colon, removed with a coldsnare. Resected and retrieved. - The examination was otherwise normal on direct and retroflexionviews. - Biopsies were taken with a cold forceps from the entire colon for evaluation of microscopic colitis. Recommendation: - Patient has a contact number available for emergencies. The signsand symptoms of potential delayed complications were discussed with the patient. Return to normal activities tomorrow. Written discharge instructions were provided to the patient. - Resume previous diet. - Continue present medications. - Await pathology results. - Repeat colonoscopy is recommended. The colonoscopy date will be determined after pathology results from today's exam become available for review. Moderate Sedation: Moderate (conscious) sedation was administered by the endoscopy nurse and supervised by the endoscopist. The following parameters were monitored: oxygen saturation, heart rate, respiratory rate, blood pressure, adequacy of pulmonary ventilation and reponse to care. Please refer to the patient's medical record flowsheets and nursing notes for moderate sedation details. Total physician intraservice time was 20 minutes. Eric Haynes MD 06/21/2021 2:27:24 PM This report has been signed electronically. Note Initiated On: 06/21/2021 1:23 PM Procedure Code(s): --- Professional --- 03228, Colonoscopy, flexible; with removalof tumor(s), polyp(s), or other lesion(s) bysnare technique 31693, 59, Colonoscopy, flexible; withbiopsy, single or multiple Diagnosis Code(s): --- Professional --- K63.5, Polyp of colon R19.7, Diarrhea, unspecified CPT copyright 2020 [employer]. All rights reserved. The codes documented in this report are preliminary and upon extruder tender reviewmay be revised to meet current compliance requirements. Scope In: 2:01:11 PM Scope Withdrawal Time 0 hours 14 minutes 52 seconds Scope Out: 2:20:42 PM Eric Haynes MD PROCEDURE ORD from Last 3 Months or Most Recently Relevant to Health Maintenance Advance Directives * Full Code (Latest Code Status on File) Date Activated Date Inactivated Comments 02/21/2016 11:47 PM 03/09/2016 2:58 PM Care Teams Remote Inpatient Coder Relationship Specialty Start Date End Date Clary Prieto [place] [address] PCP - General Family Practice 03/07/16
== END 2023-12-21 08:41 | disposition home or self-care (01) ==
LOC: NFLDREF 01-08 08:41
PROVIDERS: PCP Family Medicine; Referring Provider Family Medicine; Visit Provider Internal Medicine Nephrology
DX: R53.83 Other fatigue (principal); N18.1 Chronic kidney disease, stage 1; E10.22 Type 1 diabetes mellitus with diabetic chronic kidney disease; F31.9 Bipolar disorder, unspecified
CPT/HCPCS: 80069; 82043; 82570; 83970; 84550; 86140

== ENCOUNTER 2024-06-20 15:35 | Outpatient (CLI) | payer OTHER, SELFPAY ==
--- OUTSIDE RECORDS SUMMARY | 2024-06-24 14:23 | XMS_ITS | Referral Summary ---
Author Organization [facility] Address [address] [place] [address] Care Team Providers Care Skill Training Program Coordinator Name Role Phone Unavailable Primary Care Provider Unavailabl e Source Comments Patient records contain information from all sites at [facility]. For routine questions regarding patient records, call [phone] during business hours, M-F 8:00 AM - 5:00 PM Central Time. Record requests for emergency care only can be directed to [phone] at any time.[facility] Encounters Date Type Department Care Team Description 06/23/2024 4:00 PM FIELD APPLICATIONS SPECIALIST External Outreach Division of Nephrology and Hypertension in [place], [place] [address] [place] [address] Merlin Dougherty Jr., D.O. 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 (HCC) from Last 3 Months Allergies Active Allergy Reactions Criticality Noted Date Comments Penicillin V Other (see comments) Medium 08/28/2017 Vomited Medications * This document contains information received from the source organization and may not represent a complete record from that organization. venlafaxine XR (for_EFFEXOR-XR) 150 mg 24 hr [...] Date Recorded Nutrition: EVOO Fat Source Unknown 10/11 Nutrition: Servings of Fruits/Vegetables per Day Not on file 10/11/2020 Dental Answer Date Recorded Dental: Regular Dentist Unknown 08/17/19 Comments Unknown Sex and Gender Information Value Date Recorded Sex Assigned at Not on file Legal Sex Female 4:22 AM FIELD APPLICATIONS SPECIALIST Gender Identity Not on file Sexual Orientation Not on file Last Filed Vital Signs Vital Sign Reading Time Taken Comments Blood Pressure 130/84 06/23/2024 4:14 PM FIELD APPLICATIONS SPECIALIST Pulse 72 06/23/2024 4:14 PM FIELD APPLICATIONS SPECIALIST Temperature 36 C (96.8 F) 08/21/2017 6:26 AM FIELD APPLICATIONS SPECIALIST Respiratory Rate 16 08/10/2017 2:46 AM FIELD APPLICATIONS SPECIALIST Oxygen Saturation 97% 08/16/2017 4:15 PM FIELD APPLICATIONS SPECIALIST Inhaled Oxygen Concentration - - Weight 103 kg (227 lb 15.3 oz) 06/23/2024 4:14 P M FIELD APPLICATIONS SPECIALIST Height 163.8 cm (5' 4.49) 06/23/2024 4:14 PM CS T Body Mass Index 38.54 06/23/2024 4:14 PM FIELD APPLICATIONS SPECIALIST Plan of Treatment Not on file Procedures Procedure Name Priority Date/Time Associated Diagnosis Comments BASIC METABOLIC PANEL, S/P Routine 08/01/2017 5:29 AM FIELD APPLICATIONS SPECIALIST from Last 3 Months or Most Recently Relevant to Health Maintenance Results * BMP (Basic Metabolic Panel) (08/01/2017 5:29 AM FIELD APPLICATIONS SPECIALIST) Potassium, S 4.1 3.6 - 5.2 mmol/L 08/01/2017 6:21 AM FIELD APPLICATIONS SPECIALIST [facility] Sodium, S 141 135 - 145 mmol/L 08/01/2017 6:21 AM FIELD APPLICATIONS SPECIALIST [facility] Chloride, S 103 98 - 107 mmol/L 08/01/2017 6:21 AM [facility] Bicarbonate, S 26 22 - 29 mmol/L 08/01/2017 6:21 AM [facility] Anion Gap 12 7 - 15 08/01/2017 6:21 AM [facility] BUN (Blood Urea Nitrogen), S 17 6 - 21 mg/dL 08/01/2017 6:21 AM [facility] Creatinine 0.77 0.59 - 1.04 mg/dL 08/01/2017 6:21 AM [facility] eGFR Non-Black/Afric an Israeli >90 >=60 mL/min/BSA 08/01/2017 6:21 AM [facility] Comment: ----ADDITIONAL INFORMATION---- Estimated GFR calculated using the 2009 CKD_EPI creatinine equation. eGFR Black/ >90 >=60 mL/min/BSA 08/01/2017 6:21 AM [facility] Comment: ----ADDITIONAL INFORMATION---- Estimated GFR calculated using the 2009 CKD_EPI creatinine equation. Calcium, Total, S 9.1 8.9 - 10.1 mg/dL 08/01/2017 6:21 AM [facility] Glucose, S 89 70 - 140 mg/dL 08/01/2017 6:21 AM [facility] Blood (Blood, Venous) 08/01/2017 5:29 AM FIELD APPLICATIONS SPECIALIST 08/01/2017 5:53 AM [facility] Janeth Beck M.D. LAB BLOOD ADD-ON Final Result [facility] [address] [place] [address], [facility] from Last 3 Months or Most Recently Relevant to Health Maintenance Insurance [facility] [employer] Advance Directives For more information, please contact: [phone] * Full Code (Latest Code Status on [...]
--- OUTSIDE RECORDS SUMMARY | 2024-06-24 14:23 | XMS_ITS ---
Author Organization [facility] Address [address] [place] [address] Care Team Providers Care Trader Name Role Phone Unavailable Unavailable Unavailable Surgery Details Not on file Complications Check Surgery Details section. Procedure Estimated Blood Loss Check Surgery Details section. Procedure Findings Check Surgery Details section. Procedure Specimens Taken Check Surgery Details section.
--- OUTSIDE RECORDS SUMMARY | 2024-06-24 14:23 | XMS_ITS | Encounter Summary ---
Author Organization [facility] Address [address] [place] [address] Care Team Providers Care Etl Analyst Name Role Phone Unavailable Primary Care Provider Unavailabl e Reason for Visit * Appointment Request (Routine) - Closed Specialty Diagnoses / Procedures Referred By Amarjit hassan Referred To Contact Nephrology and Hypertension Referral ID Status Reason Start Date Expiration Date Visits Re quested Visits Authorized [id number] Closed 06/06/2024 06/06/2025 1 1 Encounter Details Date Type Department Care Team (Latest Contact Info) Description 06/23/2024 4:00 PM NUTRITION TECHNICIAN External Outreach Division of Nephrology and Hypertension in [place], [place] [address] [place] [address] Merlin Dougherty Jr., D.O. [address] [place] [address] Chronic Kidney Disease Stage 2 Glomerular Filtration [...] Date Recorded Dental: Regular Dentist Unknown 08/17/19 24 Comments Unknown Sex and Gender Information Value Date Recorded Sex Assigned at Not on file Legal Sex Female 4:22 AM NUTRITION TECHNICIAN Gender Identity Not on file Sexual Orientation Not on file documented as of this encounter Last Filed Vital Signs Vital Sign Reading Time Taken Comments Blood Pressure 130/84 06/23/2024 4:14 PM NUTRITION TECHNICIAN Pulse 72 06/23/2024 4:14 PM NUTRITION TECHNICIAN Temperature - - Respiratory Rate - - Oxygen Saturation - - Inhaled Oxygen Concentration - - Weight 103 kg (227 lb 15.3 oz) 06/23/2024 4:14 P M NUTRITION TECHNICIAN Height 163.8 cm (5' 4.49) 06/23/2024 4:14 PM CS T Body Mass Index 38.54 06/23/2024 4:14 PM NUTRITION TECHNICIAN documented in this encounter Progress Notes * Merlin Dougherty Jr., D.O. - 06/23/2024 4:00 PM CST Referring Provider: No primary care provider on file. SUBJECTIVE REASON FOR VISIT [facility] Follow-up regards CKD HISTORY OF PRESENT ILLNESS Ms. Han is a 44 y.o. female who presents with CKD stage 1 to 2 on the background of using lithium for her mood disorder. I appreciate that her psychiatrist had decreased her dose from 1200-600 mg at our last visit, whichwas in December of 2023. Since then her mood has been stable, she feels well in all respects. She has no constitutional complaints, no fevers no chills. I was delighted to let her know her labs are excellent, she has no microalbuminuria, her creatinineis 0.8 mg/dL calcium and the PTH axis are normal. Past Medical History: Diagnosis Date Anxiety Generalized Disorder Bipolar Disorder Current Episode Manic Severe With Psychotic Features ([facility]) 07/19/2017 Depressive Disorder Current Outpatient Medications: lithium carbonate (ESKALITH) 150 mg capsule, 1,200 mg., Disp: , Rfl: QUEtiapine (for_SEROquel) 100 mg tablet, Take 50-100 mg by mouth daily as needed., Disp: , Rfl: venlafaxine XR (for_EFFEXOR-XR) 150 mg 24 hr capsule, Take 150 mg by mouth daily., Disp: , Rfl: REVIEW OF SYSTEMS All other systems reviewed and are negative. OBJECTIVE BP 130/84 Pulse 72 Ht 163.8 cm Wt 103 kg BMI 38.54 kg/m?? PHYSICAL EXAMINATION General: Awake, alert, oriented. HEENT: ROGELIO, EOMI, mucous membranes moist, no oral lesions. Neck: No masses, no bruits. Lungs: Clear to auscultation. Heart: Regular rate and rhythm. No ectopy, murmurs, or rubs. Abdomen: Soft, non-tender. Extremities: No cyanosis, no clubbing, no edema. Neuro: Cranial nerves intact. Gait is normal, strength grossly normal. Skin: No suspicious lesions identified. Psychiatric: Normal affect. DIAGNOSTICS Note serum creatinine 0.8 mg/dL normal CBC normal urinalysis no microalbuminuria PTH 34, with normal serum calcium ASSESSMENT / PLAN #1 Chronic Kidney Disease Stage 2 Glomerular Filtration Rate 60 To 89 This is on the background of long-term lithium use, which should continue given the competing priorities of mood control versus her renal dysfunction. Her blood pressure and objectively chemistries and urine studies are excellent. I will set up a surveillance visit in 1 year. #2 Bipolar Disorder Current Episode Manic Severe With Psychotic Features (HCC) She is doing quite well from a mood perspective and compensated. I congratulated her. I do not havereason to suggest any changes in her current behavioral health medication program. Specifically, she should continue lithium. Total time: 20 minutes Counseling Time: 15 minutes Merlin Dougherty Jr., D.O. ITION TECHNICIAN documented in this encounter Plan of Treatment Not on file documented as of this encounter Visit Diagnoses Diagnosis Chronic Kidney Disease Stage 2 Glomerular Filtration Rate 60 To 89- Primary Bipolar Disorder Current Episode Manic Severe With Psychotic Features (HCC) documented in this encounter
--- OUTSIDE RECORDS SUMMARY | 2024-06-24 14:23 | XMS_ITS | Clinical Summary ---
Author Organization [facility] Address [place], [place] [address] Care Team Providers Care Replanting Machine Crew Name Role Phone Clary Prieto DO Primary Care Provider [phone] Allergies Active Allergy Reactions Criticality Noted Date Comments Penicillins Nausea And Vomiting 06/19/2014 As a child. Medications Medication Sig Dispensed Refills Start Date End Date Status hydrOXYzine pamoate (VISTARIL) 25 mg capsuleIndications:A nxiety,Psychophysiol ogical insomnia TAKE 2 CAPSULES BY MOUTH FOR INSOMNIA AND 1 TO 2 DAILY NEEDED FOR ANXIETY 360 Capsule 1 08/09/2023 Active docosahexaenoic acid/epa (FISH OIL ORAL) Take by mouth. Active busPIRone (BUSPAR) 30 mg tabletIndications:An xiety Take 1 Tablet (30 mg) by mouth two times daily. 180 Tablet 1 11/22/2023 Active lithium carbonate (LITHONATE) 300 mg capsuleIndications:B ipolar 1 disorder (HC) Take 2 Capsules (600 mg) by mouth at bedtime. 180 Capsule 1 11/22/2023 Active OLANzapine (ZYPREXA) 5 mg tabletIndications:Bi polar 1 disorder (HC) TAKE 1 TABLET(5 MG) BY MOUTH AT BEDTIME 90 Tablet 1 03/18/2024 Active atorvastatin (LIPITOR) 40 mg tabletIndications:Hy perlipidemia, unspecified hyperlipidemia type TAKE 1 AND 1/2 TABLETS(60 MG) BY MOUTH AT BEDTIME 135 Tablet 3 03/25/2024 Active famotidine (PEPCID) 20 mg tabletIndications:He artburn Take 1 Tablet (20 mg) by mouth once daily. 90 Tablet 3 03/25/2024 Active omeprazole 20 mg tabletIndications:Ga stric reflux Take 1 Tablet (20 mg) by mouth once daily before a meal. 30 Tablet 03/25/2024 Discontinue d(*Med complete/Re gimen complete/[place] of care change) Active Problems Problem Noted Date Diagnosed Date Pap smear for cervical cancer screening 01/05/20 Overview (03/29/2022): 01/2022 NIL/HPV negative. Plan: Pap/HPV due 01/2027. Anxiety 11/05/2019 Bipolar 1 disorder 02/26/2018 Psychophysiological insomnia 02/22/2016 Resolved Problems Problem Noted Date Diagnosed Date Resolved Date Bipolar disorder, current ep isode manic severe with psychotic features 02/29/2016 6 Bipolar disorder, current ep isode manic severe with psychotic features 02/21/2016 6 Encounters Date Type Department Care Team Description 06/24/2024 Travel 06/11/2024 4:00 PM BOARD MACHINE SET UP OPERATOR Telemedicine [facility] [address] [place] [address] Jodee Key, PhD, LP Individual Therapy 06/07/2024 Travel 05/27/2024 8:45 AM CDT Office Visit [facility] [address] [place] [address] Clary Prieto, Mouth/Lip Problem (White slime in mouth ) 05/27/2024 Travel 05/22/2024 Travel 05/05/2024 4:00 PM CDT Telemedicine [facility] [address] [place] [address] Jodee Key, PhD, LP Trmt Plan 05/04/2024 Travel 04/24/2024 9:00 AM CDT Ancillary Procedure [address] [place] [address] 04/24/2024 Travel 03/31/2024 Telephone [facility] [address] [place] [address] Clary Prieto, Medication Management (nystatin (MYCOSTATIN) 100,000 unit/mL suspension 60 mL) 03/31/2024 Refill [facility] [address] [place] [address] Clary Prieto, Refill Request (Nystatin) 03/25/2024 8:45 AM CDT Office Visit [facility] [address] [facility] [address] Clary Prieto, Physical (44 yr/); Mouth/Lip Problem (thick white film in mouth and bad breath in mornings for a few months) 03/25/2024 Travel from Last 3 Months Immunizations Name [...] drink = 0.6 oz pur e alcohol) maybe once a week PHQ-2 Answer Date Recorded PHQ-2 TOTAL SCORE 3 06/10/2024 Social Connections Answer Date Recorded Do you often feel lonely or isolated from those around you? 4 03/25/2024 Alcohol Use Answer Date Recorded How often do you have a drink containing alcohol ? 2 10/02/2023 How many drinks containing a lcohol do you have on a typical day when you are drinking? 0 10/02/2023 How often do you have five or more drinks on one occasion? 0 10/02/2023 Financial Resource Strain Answer Date R ecorded Difficulty of Paying Living Expenses 2 03/25/2024 Difficulty of Paying Living Expenses 1 03/25/2024 Food Insecurity Answer Date Recorded Do you worry your food will run out before you are able to buy more? 1 03/25/2024 Transportation Needs Answer Date Record ed Does lack of transportation keep you from medica l appointments? 1 03/25/2024 Does lack of transportation keep you from work, meetings or getting things that you need? 1 03/25/2024 Housing Stability Answer Date Recorded What is your housing situation today? 1 03/25/2024 Sex and Gender Information Value Date Recorded Sex Assigned at Female 02/24/2022 10:40 AM CDT Gender Identity Female 02/24/2022 10:40 AM CDT Sexual Orientation Not on file Obstetrics History Para Term AB IAB SAB Ectopic Multiple Livin g Live Births 2 2 2 0 0 0 0 0 0 2 2 Date Outcome GA Total Labor Labor/2nd/3rd Weight Sex Type Anes PTL Deanna A1 A5 Name Clin Term Vag Living Term Vag Living Last Filed Vital Signs Vital Sign Reading Time Taken Comments Blood Pressure 110/78 05/27/2024 8:53 AM CDT Pulse 80 05/27/2024 8:53 AM CDT Temperature 36.8 C (98.2 F) 10/24/2022 9:39 AM CDT Respiratory Rate 16 03/09/2016 9:00 AM CDT Oxygen Saturation 99% 05/27/2024 8:53 AM CDT Inhaled Oxygen Concentration - - Weight 103.4 kg (228 lb) 05/27/2024 8:53 AM CDT Height 164.6 cm (5' 4.8) 03/25/2024 9:00 AM CDT Body Mass Index 38.17 03/25/2024 9:00 AM CDT Plan of Treatment Upcoming Encounters Date Type Department Care Team (Late st Contact Info) Description 06/25/2024 9:45 AM BOARD MACHINE SET UP OPERATOR Office Visit [facility] [address] [place] [address] Angelina Parmar MD [address] [place] [address] 10/08/2024 8:30 AM BOARD MACHINE SET UP OPERATOR Office Visit [facility] [address] [place] [address] Rebel Sutherland, PhD, LP [address] [place] [address] Health Maintenance Due Date Last Done Comments Influenza for age 9-49 04/06/2024 , 05/17/2022, 06/16/2021, Additional history exists BMI (ht and wt on same day) for age 18+ 03/25/2025 03/25/2024, 01/19/2022, 05/04/2021, Additional history exists Mammogram for age 45-75 04/24/2025 04/24/2024, 02/02 Depression screening for age 12+ 06/11/2025 06/11/2024, 06/10/2024, 05/05/2024, Additional history exists Pap test for age 21-65 01/19/2027 2, 01/19/2022, 04/03/2016, Additional history exists Lipids for age 45-75 05/17/2028 05/17/2023, 08/31/2022, 05/25/2022, Additional history exists Colonoscopy through age 75 06/21/203106/21, 06/21/2021, 06/21/2021, Additional history exists Tetanus booster 05/21/2033 05/21/2023, 04/03/2013 HIV for age 15-65 Completed 05/17/2023 Hepatitis C screening for age 18-79 Completed 05/17/2023 Tdap Completed 05/21/2023, 04/03/2013 COVID-19 vaccine series Completed 05/26/20 24, 05/22/2023, 07/10/2022, Additional history exists Pneumococcal series for age 6-64 Aged Out No longer eligible based on patient's age to complete this topic Procedures Procedure Name Priority Date/Time Associated Diagnosis Comments XR MAMMO JAC BILAT SCREEN Routine 04/24/2024 9:15 AM CDT Visit for screening mammogram ANTI HIV 1/2 Routine 05/17/2023 8:44 AM CDT Screening for HIV (human immunodeficiency virus) ANTI HCV Routine 05/17/2023 8:44 AM CDT Need for hepatitis C screening test LIPID PANEL W REFLEX MEASURED LDL Routine 05/17/2023 8:44 AM CDT Hyperlipidemia, unspecified hyperlipidemia type HPV HIGH RISK Routine 01/19/2022 2:04 PM CDT Cervical cancer screening COLONOSCOPY DIAGNOSTIC Routine 06/21/2021 1:25 PM BOARD MACHINE SET UP OPERATOR Chronic diarrhea from Last 3 Months or Most Recently Relevant to Health Maintenance Results * XR MAMMO JAC BILAT SCREEN (04/24/2024 9:15 AM CDT) Anatomical Region Laterality Modality BREASTS, Breast Left, Breast Right Bilateral Mammography Impressions 04/27/2024 9:08 AM CDT There is no radiographic evidence for malignancy. Recommend annual mammograms. MAMMOGRAM ASSESSMENT: ACR 1 Negative PATIENTS: You will also receive a letter with your examination results in an easy to read format. If you have questions about your results, please contact your referring provider. Narrative 04/27/2024 9:08 AM CDT For Patients: As a result of the 21st Century Cures Act, medical imaging exams and procedure reports are released immediately into your electronic medical record. You may view this report before your referring provider. If you have questions, please contact your health care provider. XR MAMMO JAC BILAT SCREEN [[id number]] CLINICAL HISTORY: This is an asymptomatic 44 y.o. patient. INDICATION FOR EXAM: Mammogram Screening. TECHNIQUE: CC & MLO views were obtained. This study was evaluated with the assistance of Computer-Aided Detection. Breast Tomosynthesis was used in interpretation. COMPARISON FILM: Yes 02/02/22 [facility] FINDINGS: There are scattered areas of fibroglandular density. There are no dominant masses, suspicious micro calcifications or areas of architectural distortion. Clary Prieto DO MAMMO * (ABNORMAL) LIPID PANEL W REFLEX MEASURED LDL (05/17/2023 8:44 AM CDT) CHOLESTEROL,TOTAL 167 100 - 199 mg/dL 05/17/2023 5:43 PM CDT [facility] Comment: Cholesterol, Total Reference Ranges Desirable <200 mg/dL Borderline 200-239 mg/dL High >=240 mg/dL TRIGLYCERIDES 204(H) <150 mg/dL 05/17/2023 5:43 PM CDT [facility] HDL CHOLESTEROL 37(L) >40 mg/dL 5:43 PM CDT [facility] NON-HDL CHOLESTEROL 130 <145 mg/dl 05/17/2023 5:43 PM CDT [facility] CHOL/HDL RATIO 4.51(H) <4.50 05/17/2023 5:43 PM CDT [facility] LDL CHOLESTEROL 89 <=130 mg/dL 05/17/2023 5:43 PM CDT [facility] VLDL CHOLESTEROL 41(H) <=30 mg/dL 05/17/2023 5:43 PM CDT [facility] PROVIDER ORDERED STATUS RANDOM 05/17/2023 5:43 PM CDT [facility] Blood BLOOD SPECIMEN / Unknown Venipuncture / Unknown 05/17/2023 8:44 AM CDT 05/17/2023 8:46 AM CDT Clary Prieto DO [facility]Y [facility] [address] [place] [address], * ANTI HCV (05/17/2023 8:44 AM CDT) HEPATITIS C ANTIBODY Non-Reacti ve Non-React daniel 05/17/2023 5:42 PM CDT [facility] Comment:Please note, per www .CDC.gov: If [...] AM CDT 05/17/2023 8:46 AM CDT Clary Bergeronfelicitas DO SEND OUTS Performing Organization Address [facility] Co de Phone Number [facility] [address] [place] [address], * ANTI HIV 1/2 [57655.0] (05/17/2023 8:44 AM CDT) HIV-1/HIV-2 SCREEN Non-Reacti ve Non-Reacti ve 05/17/2023 5:46 PM CDT [facility] Comment:HIV-1 p24 and HIV-1/ HIV-2 Ab Not Detected. Blood BLOOD SPECIMEN / Unknown Venipuncture / Unknown 05/17/2023 8:44 AM CDT 05/17/2023 8:46 AM CDT Clary Ann Ida COOK SEND OUTS Performing Organization Address City/[facility] Co de Phone Number [facility] [address] [place] [address], * HPV HIGH RISK (01/19/2022 2:04 PM CDT) TYPE 16 Negative Negative 01/24/2022 10:35 AM CDT [facility] TYPE 18 Negative Negative 01/24/2022 10:35 AM CDT [facility] OTHER HIGH RISK TYPES Negative Negative 01/24/2022 10:35 AM CDT [facility] Other (Cervical) Non-Blood / Unknown 01/19/2022 2:04 PM CDT 01/20/2022 8:55 AM CDT Narrative [facility] - 01/24/2022 10:35 AM CDT HPV types 16, 18, 31, 33, 35, 39, 45, 51, 52, 56, 58, 59, 66 and 68 DNA were undetectable or below the pre-set threshold. Methodology: Joy Hung 4800 HPV Test Clary Prieto DO MICROBIOLOGY [facility] [address] [place] [address], [place] * COLONOSCOPY (06/21/2021 1:23 PM BOARD MACHINE SET UP OPERATOR) 06/21/2021 1:23 PM BOARD MACHINE SET UP OPERATOR Narrative Transcriptions Eric Haynes MD - [...] adequate candidate for conscious sedation. The [id number] was passed through the anus and advanced [...] 1:23 PM Procedure Code(s): --- Professional --- 22474, Colonoscopy, flexible; with removalof tumor(s), polyp(s), or other lesion(s) bysnare technique 31034, 59, Colonoscopy, flexible; withbiopsy, single or multiple Diagnosis Code(s): --- Professional --- K63.5, Polyp of colon R19.7, Diarrhea, unspecified CPT copyright 2020 [employer]. All rights reserved. The codes documented in this report are preliminary and upon medicine worker reviewmay be revised to meet current compliance [...] 11:47 PM 03/09/2016 2:58 PM Care Teams Replanting Machine Crew Relationship Specialty Start Date End Date [place] [address] PCP - General Family Practice 03/07/16
--- OUTSIDE RECORDS SUMMARY | 2024-06-24 14:23 | XMS_ITS | Clinical Summary ---
Author Organization [facility] Address [address] [place] [address] Care Team Providers Care Manager Manufacturing Name Role Phone Unavailable Primary Care Provider Unavailabl e Source Comments Patient records contain information from all sites at [facility]. For routine questions regarding patient records, call [phone] during business hours, M-F 8:00 AM - 5:00 PM Central Time. Record requests for emergency care only can be directed to [phone] at any time.[facility] Allergies Active Allergy Reactions Criticality Noted Date [...] Department Care Team Description 06/23/2024 4:00 PM MANAGER MEDICARE External Outreach Division of Nephrology and Hypertension in [place], [place] [address] [place] [address] Merlin Dougherty Jr., D.O. Chronic Kidney Disease [...] on file Legal Sex Female 4:22 AM MANAGER MEDICARE Gender Identity Not on file Sexual Orientation Not on file Last Filed Vital Signs Vital Sign Reading Time Taken Comments Blood Pressure 130/84 06/23/2024 4:14 PM MANAGER MEDICARE Pulse 72 06/23/2024 4:14 PM MANAGER MEDICARE Temperature 36 C (96.8 F) 08/21/2017 6:26 AM MANAGER MEDICARE Respiratory Rate 16 08/10/2017 2:46 AM MANAGER MEDICARE Oxygen Saturation 97% 08/16/2017 4:15 PM MANAGER MEDICARE Inhaled Oxygen Concentration - - Weight 103 kg (227 lb 15.3 oz) 06/23/2024 4:14 P M MANAGER MEDICARE Height 163.8 cm (5' 4.49) 06/23/2024 4:14 PM CS T Body Mass Index 38.54 06/23/2024 4:14 PM MANAGER MEDICARE Plan of Treatment Health Maintenance Due Date Last Done Comments CT Colonography 1979 Cervical/Vaginal Cancer Screening 1979 Cologuard 1979 FIT 1979 Hepatitis C Screening 1979 Hepatitis B Vaccines (1 of 3 - 19+ 3-dose series) 1998 Depression Screening (Annual PHQ-2) 08/06/2023 Influenza Vaccine (#1) 2024 3, 05/17/2022, 06/16/2021, Additional history exists Mammogram 04/24/2025 04/24/2024, 04/06, 02/02/2022 Fasting Glucose for Diabetes Screening 10/25/2026 10/26/2023, 09/14/2023, 05/25/2022, Additional history exists Lipid (Cholesterol) Screening 05/25/2027 05/25/2022, 12/28/2021 Colonoscopy 06/21/2031 06/21/2021, 06/21/2021 Colorectal Cancer Screening 06/21/2031 DTaP,Tdap,and Td Vaccines (3 - Td or Tdap) 05/21/2033 05/21/2023, 04/03/2013 Glucose Test for Med Monitoring Discontinued 10/26/2023, 09/14/2023, 05/25/2022, Additional history exists COVID-19 Vaccine Completed 05/26/2024, , 07/10/2022, Additional history exists HPV Vaccines Aged Out No longer eligi ble based on patient's age to complete this topic IPV Vaccines Aged Out No longer eligi ble based on patient's age to complete this topic Pneumococcal vaccine (0-64 years) Aged Out No longer eligible based on patient's age to complete this topic Procedures Procedure Name Priority Date/Time Associated Diagnosis Comments BASIC METABOLIC PANEL, S/P Routine 08/01/2017 5:29 AM MANAGER MEDICARE from Last 3 Months or Most Recently Relevant to Health Maintenance Results * BMP (Basic Metabolic Panel) (08/01/2017 5:29 AM MANAGER MEDICARE) Potassium, S 4.1 3.6 - 5.2 mmol/L 08/01/2017 6:21 AM MANAGER MEDICARE [facility] Sodium, S 141 135 - 145 mmol/L 08/01/2017 6:21 AM MANAGER MEDICARE [facility] Chloride, S 103 98 - 107 mmol/L 08/01/2017 6:21 AM MANAGER MEDICARE [facility] Bicarbonate, S 26 22 - 29 mmol/L 08/01/2017 6:21 AM MANAGER MEDICARE [facility] Anion Gap 12 7 - 15 08/01/2017 6:21 AM MANAGER MEDICARE [facility] BUN (Blood Urea Nitrogen), S 17 6 - 21 mg/dL 08/01/2017 6:21 AM [facility] Creatinine 0.77 0.59 - 1.04 mg/dL 08/01/2017 6:21 AM [facility] eGFR Non-Black/Afric an Nigerian >90 >=60 mL/min/BSA 08/01/2017 6:21 AM [facility] Comment: ----ADDITIONAL INFORMATION---- Estimated GFR calculated using the 2009 CKD_EPI creatinine equation. eGFR Black/ >90 >=60 mL/min/BSA 08/01/2017 6:21 AM MANAGER MEDICARE [facility] Comment: ----ADDITIONAL INFORMATION---- Estimated GFR calculated using the 2009 CKD_EPI creatinine equation. Calcium, Total, S 9.1 8.9 - 10.1 mg/dL 08/01/2017 6:21 AM [facility] Glucose, S 89 70 - 140 mg/dL 08/01/2017 6:21 AM [facility] Blood (Blood, Venous) 08/01/2017 5:29 AM MANAGER MEDICARE 08/01/2017 5:53 AM [facility] Janeth Beck M.D. LAB BLOOD ADD-ON Final Result [facility] [address] [place] [address], [facility] from Last 3 Months or Most Recently Relevant to Health Maintenance Insurance [employer] Advance Directives For more information, please contact: [phone] * Full Code (Latest Code Status on [...]
== END 2024-06-20 15:36 | disposition home or self-care (01) ==
LOC: NFLDREF 06-24 14:21
PROVIDERS: PCP Family Medicine; Referring Provider Family Medicine; Visit Provider Internal Medicine Nephrology
DX: E10.22 Type 1 diabetes mellitus with diabetic chronic kidney disease (principal); N18.1 Chronic kidney disease, stage 1; R53.83 Other fatigue; F31.9 Bipolar disorder, unspecified; Z79.899 Other long term (current) drug therapy
CPT/HCPCS: 80069; 82043; 82570; 83970; 84550; 86140; 87086

== ENCOUNTER 2025-07-15 09:00 | Outpatient (CLI) | payer BC, SELFPAY | END 2025-07-15 09:01 | disposition home or self-care (01) | LOC: NFLDREF 07-21 15:40 | PROVIDERS: PCP Family Medicine; Referring Provider Family Medicine; Visit Provider Internal Medicine Nephrology | DX: E10.22 Type 1 diabetes mellitus with diabetic chronic kidney disease (principal); N18.1 Chronic kidney disease, stage 1 | CPT/HCPCS: 80069; 82043; 82570; 83970; 84550; 87086 ==